=== PATIENT | female | born 1985 | race Caucasian/White ===

== ENCOUNTER 2016-08-28 19:09 | Emergency (ER) | payer SELFPAY ==
--- NOTE | 2016-09-01 19:14 | ER ---
ADMIT: 08/28/2016 RM/LOC: ER [facility] MR#: [id number] [address] [id number] HERMANN DYER [address] [place] [id number] Emergency Room Report SEX: F AGE: 30 : 1985 DATE: 08/28/2016 HISTORY OF PRESENT ILLNESS: The patient is a 30-year-old female, [facility]. Allegedly, has been in [facility] for few months, was brought here because of allegedly suicide attempt. Allegedly, the patient has a history of psychiatric disorder and multiple personality disorder and tried to hang herself with a sheet, allegedly she tied the sheet to the bar, but her feet were on the ground and she just tried to hang herself while her feet were on the ground. The patient did not lose consciousness, no head trauma. The patient was brought to the ER for the evaluation. The patient is not cooperative, does not talk. The Law Enforcement at the bedside knows the patient and sees the patient in the [facility] and states that is her baseline mental status and she had been like this before. The patient's eyes are open, in no obvious pain or distress at the present. PHYSICAL EXAMINATION: GENERAL: The patient sometimes talks a few sentences, but does not answer the questions and does not follow commands and is not cooperative at all. HEENT/NECK: Pupils are 3 mm, reactive to light. The patient had normal extraocular movements. There is mild erythema in the anterior neck without any expanding hematoma. Trachea is midline. There is no pulsatile mass in the neck. While the patient talks, we did not notice any change in the voice per [employer]. The patient has no difficulty breathing. The rest of the physical examination of the neck is normal. CHEST: Clear bilaterally. ABDOMEN: Soft. HEART: Normal heart sounds. EXTREMITIES: There are no signs of trauma in the lower and upper extremities. The patient moves all extremities and walks without difficulty, but does not follow commands and is not cooperative. EMERGENCY ROOM COURSE: CT scan of the neck was negative for any acute changes of fracture, dislocation, subluxation or other injuries. In the ER, the patient became agitated, received 2 mg of Ativan IV and also 10 mg of Geodon IM, agitation was controlled. The patient is stable to be discharged to [facility] with return precautions and follow up with the [facility] physician as needed. Eliazar Nayak MD/ rachel JOB #: [id number] CC: Geo Red MD, Attending Physician
== END 2016-08-28 21:01 ==
LOC: ER 19:09
DX: T71.162A Asphyxiation due to hanging, intentional self-harm, initial encounter (principal); S10.93XA Contusion of unspecified part of neck, initial encounter; R45.1 Restlessness and agitation; F44.81 Dissociative identity disorder; Y92.89 Other specified places as the place of occurrence of the external cause; Z79.899 Other long term (current) drug therapy